=== PATIENT | male | born 1960 | race Caucasian/White ===

== ENCOUNTER 2017-02-04 07:46 | Day surgery (SDC) | payer BC ==
[~2017-02-04] VITALS: Ht 182.9 cm; Wt 121.5 kg
[2017-02-04] MEDS ORDERED: NS 1000P @30 MLS/HR (KVO) IV SCH (08:00)
[2017-02-04 08:24] VITALS: BP 148/68; PULSE 68; RESP 14; TEMP 98.8; O2SAT 95
[2017-02-04] MEDS ORDERED: FISHCAP4 PO (08:38)
[2017-02-04] MEDS ORDERED: FLUT1SPR5 EACH NARE (08:38)
[2017-02-04] MEDS ORDERED: ASPI81TA11 PO (08:38)
[2017-02-04] MEDS ORDERED: CHOL1CAP6 PO (08:38)
[2017-02-04] MEDS ORDERED: AMLO10TA2 PO (08:38)
[2017-02-04] MEDS ORDERED: RANO500 PO (08:38)
[2017-02-04] MEDS ORDERED: NITR0.4S SL (08:38)
[2017-02-04] MEDS ORDERED: LEVO150T7 PO (08:38)
[2017-02-04] MEDS ORDERED: ATOR20TA15 PO (08:38)
[2017-02-04] MEDS ORDERED: ISOS30TA3 PO (08:38)
[2017-02-04] MEDS ORDERED: PRAM0.25 PO (08:38)
[2017-02-04] MEDS ORDERED: ASPIRIN 325 MG TAB ONE (08:40)
[2017-02-04 08:46] LABS: BASOPHIL % 0.5 % (0.0-2.0); EOSINOPHIL # 0.2 TH/MM3 (0-0.4); EOSINOPHIL % 4.1 % (0.0-4.0); HEMATOCRIT 41.5 % (39.0-51.0); HEMO FLAGS DIFF FINAL; LYMPH % 42.7 % (9.0-44.0); LYMPHOCYTE # 1.9 TH/MM3 (1.0-4.8); MEAN CELL VOLUME 88.3 FL (80.0-100.0); MEAN CORPUSCULAR HEMOGLOBIN 30.3 PG (27.0-34.0); MEAN CORPUSCULAR HGB CONC 34.3 % (32.0-36.0); MONO % 8.6 % (0.0-8.0); NEUT % 44.1 % (16.0-70.0); PLATELET COUNT 292 TH/MM3 (150-450); RED CELL DISTRIBUTION WIDTH 13.2 % (11.6-17.2); WHITE BLOOD COUNT 4.5 TH/MM3 (4.0-11.0)
[2017-02-04 08:55] LABS: APTT (PATIENT) 27.6 SEC (24.3-30.1); INTERNATIONAL NORMALIZED RATIO 0.9 RATIO; PROTHROMBIN TIME - PATIENT 10.3 SEC (9.8-11.6)
[2017-02-04 09:02] LABS: BICARBONATE 26.4 MEQ/L (21.0-32.0); POTASSIUM 3.8 MEQ/L (3.5-5.1)
[2017-02-04] MEDS ORDERED: HEPARIN-NS/PF INJ 1,000 ML ONE (09:24)
[2017-02-04] MEDS ORDERED: HEPARIN SODIUM - IV 10,000 UNITS/10 ML VIAL ONE (09:24)
[2017-02-04] MEDS ORDERED: VERAPAMIL HCL 5 MG/2 ML VIAL ONE (09:24)
[2017-02-04] MEDS ORDERED: MIDAZOLAM HCL 2 MG/2 ML VIAL ONE (09:24)
[2017-02-04] MEDS ORDERED: NITROGLYCERIN INJ 5 ML ONE (09:24)
[2017-02-04] MEDS ORDERED: HEPARIN-NS/PF INJ 500 ML ONE (10:27)
--- NOTE | 2017-02-04 11:13 | CATHPROC ---
[employer] HIS Report Study Information Study Number Admission Scheduled Start Study Start [id number] Feb 04 2017 7:46AM 02/04/2017 Feb 04 2017 9:19AM Gunpowder Service Cardiac Catheterization Admit Source Facility Department Other [facility] - Senior Business Objects Developer Physician and Clinical Staff Initial MD Guardado, Yosef Orthopedics Nurse Jaswinder RN, Shar Recorder Adriana Haley,RT(R) (BS) Scrub Adenike Quinones,RT(R) Scrub Beti Mendoza,EDUCATION PROFESSIONAL TECH2 Procedures Performed Procedure Location (Site) Vessel Name Coronary Angiograms LCA Left Coronary Coronary Angiograms RCA Right Coronary L Heart Cath Wire insertion Fem Art (right) Femoral Art Wire insertion Radial (right) Radial Art. Equipment Time Cut Roll Machine Offbearer Description Size Mfg Part Number Used/Scraped TRANSDUCER, NIKKO [id number] 09:25 Babyoye * Used W/SCAR *[id number]- INTRODUCER SET, 10:29 [employer] FR 5 SC-NT-U-SST Used MICROPUNCTURE, STIFFENED *[id number] [id number] *[id number] 534-545T *[id number] 534-548T *[id number] 534-518T *[id number] 534-621T *[id number] 534-523T *[id number] 09:25 [employer]ose PACK, CCL CUSTOM * Used *[id number] 09:25 [employer] SUPPORT, ARTERIAL ADULT 98445 *[id number] Used BAND, RADIAL COMPRESSION TR [id number] 10:45 Onavo 29CM Used LARGE 29 *[id number] 09:25 Onavo WIRE, EXCHANGE 260CM 3MMJ 260CM Used *[id number] 09:25 NAMIC MANIFOLD, 4 PORT * Used *[id number] 10:29 NAMIC TUBING, HIGH PRESSURE 20" 20" Used *[id number] 09:25 NYCOMED OMNIPAQUE, 350 MG, 150ML 150ML [id number] Used [id number] 09:25 Z[employer]pi BLANKET,WARM AIR CCL * Used *[id number] 10:27 TERUMO MEDICAL SHEATH, FR5 TERUMO (10CM) FR 5 Used *[id number] SHEATH, FR6 TRANSRADIAL [id number] 09:25 TERUMO MEDICAL FR 6 Used SLENDER 10CM *[id number] Equipment Model, Serial, Lot Number and Expiration Data Description Model Number Serial Number Lot Number Expiration Date INTRODUCER SET, [id number] 01-01-2020 MICROPUNCTURE, STIFFENED History: Current Medications Medication Dosage/Unit Route Frequency Last Date/Time Taken ASA NTG Patch Statins (any) History: Allergies Allergy Reaction No Known Drug Allergies History: Risk Factors Family History of Hypertension Dyslipidemia Previous DE Previous Heart Failure Premature CAD Yes Yes No Yes No Prior Valve Prior PCI Prior PCIDate Prior CABG Surgery No Yes 06/06/2007 No Cerebrovascular Peripheral Artery Chronic Lung On Dialysis Diabetes Disease Disease Disease No No No No No History: Stress Tests Stress or Imaging Studies Performed No History: Other Current Smoker Method Quit Packs a Day Years Used Pack Years No Cigarettes 2 Years Ago 2 36 72 Labs Hgb (g/dl) Hct (%) WBC (l/cumm) Platelets (thousands) 11.60-17.00 35.00-51.00 4.00-11.00 150.00-450.00 14.2 41.5 4.5 262 Glucose (mg/dl) BUN (mg/dl) Creatinine (mg/dl) BUN:Creatinine (1:x) 74.00-106.00 7.00-18.00 0.50-1.30 10.00-20.00 99 15 1.2 12.5 Na (meq/l) K (meq/l) 136.00-145.00 3.50-5.10 140 3.8 INR (PTT:PT) 0.90-1.10 0.9 CPK-MB (ng/ML) 0.50-3.60 Not Drawn Medication Medication Total Dose (Bolus/Oral) Medication Total Dosage/Unit 1% XYLOCAINE 21 mL FENTANYL 100 mcg OXYGEN 2 l/min RADIAL COCKTAIL 1 units VERSED 1.5 mg Medications (Bolus/Oral) Medication Time Given Dosage/Unit Administered By Reason VERSED 02/04/2017 9:41:38 AM 1 mg Shar San RN 1 mg VERSED given in lab by Shar San RN in Left Antecubital via Peripheral IV. 1% XYLOCAINE 02/04/2017 9:42:34 AM 1 mL Yosef Guardado 1 mL 1% XYLOCAINE given in lab by Yosef Guardado in Right Radial via Subcutaneous. FENTANYL 02/04/2017 9:42:48 AM 50 mcg Shar San RN 50 mcg FENTANYL given in lab by Shar San RN in Left Antecubital via Peripheral IV. Ntg 200mcg Verapamil 2.5mg Heparin RADIAL COCKTAIL 02/04/2017 9:45:05 AM 1 units Yosef Guardado 2000U 1 units RADIAL COCKTAIL given in lab by Yosef Guardado in Right Radial via Radial. Reason: Ntg 200 mcg Verapamil 2.5mg Heparin 5000U. FENTANYL 02/04/2017 10:07:36 AM 50 mcg Shar San RN 50 mcg FENTANYL given in lab by Shar San RN in Left Antecubital via Peripheral IV. VERSED 02/04/2017 10:13:12 AM 0.5 mg Shar San RN 0.5 mg VERSED given in lab by Shar San RN in Left Antecubital via Peripheral IV. OXYGEN 02/04/2017 10:15:11 AM 2 l/min Shar San RN 2 l/min OXYGEN given in lab by Shar San RN via Nasal. 1% XYLOCAINE 02/04/2017 10:29:04 AM 20 mL Yosef Guardado 20 mL 1% XYLOCAINE given in lab by Yosef Guardado in Right Groin via Subcutaneous. Medication (Drip) Medication Time Given Dosage/Unit Concentration/Unit Diluent (ml) Solution IV Solutions 02/04/2017 9:20:15 AM 0 mL (IV) 500 NaCl .9 IV Solutions given in lab by Shar San RN in Left Antecubital via Peripheral IV. Pump/Drip Flow = 100 ml/hr using NaCl .9. Initial Case Assessment Cardiovascular HR Rhythm NIBP Chest Pain 57 reg 137/76 0 Edema Present Skin color Skin None Normal Warm Dry Circulatory - Right Pulses Dorsalis Pedis Femoral Radial 2 2 2 Scale (0,1,2,3,4,d) Scale (0,1,2,3,4,d) Circulatory - Lower Extremities Color Lower Right Color Lower Left Normal Normal Neurological State Oriented to time-place- Alert Moves all extremities person Respiration - General Respiration Rate SpO2 (%) (B/min) 12 97 Chronological Log Time Study Chronological Log 9:19:32 Patient arrived via Bed. 9:19:33 Patient Name, D.O.B, / Armband Verified By R.N. 9:19:34 Consent signed by the physician and the patient and verified by the Senior Business Objects Developer staff. 9:19:34 Pre-op and post- op instructions given; patient acknowledges understanding of instructions. 9:19:35 Verbal Stimulation=2 Physical Stimulation=2 Airway=2 Respiration=2 TOTAL=8. (0=absent, 1=li mited, 2=present) 9:19:39 Presedation assessment performed by Senior Business Objects Developer RN. 9:19:42 Allens test performed on the right radial and ulnar artery. 9:20:10 Patient has been NPO for More than 6Hrs. 9:20:11 Skin Breakdown none per pt 9:20:11 Patient Warmer Placed on the Table. 9:20:14 Romero Prominences Protected 9:20:14 A # 20 IV was noted in the Antecubital (left). Grade = 0 IV Solutions given in lab by Shar San RN in Left Antecubital via Peripheral IV. Pump/Drip F low = 100 ml/hr using 9:20:15 NaCl .9. 9:20:16 History and physical on the chart or being dictated. Assessment: Initial Case, HR=57 BPM, Rhythm=reg, FYYK=360/76 mmhg, Chest Pain=0, Edema=None, Co andrade=Normal, Skin = Warm, Dry Right Pulses: Rubens Ped=2, Femoral=2, Radial=2 9:20:20 Lower Right Extremities: Color=Normal Lower Left Extremities: Color=Normal Neurological: State=Alert, Ox3, HOWELL Respiration: Resp=12 B/min, SpO2=97 % Vitals capture started with the following parameters, Patient=Adult, Interval=5 min, Initial Pr vkxkgx=966 mmHg, 9:25:21 Deflation Rate=5 mmHg, Cuff placed on Left Arm 9:26:03 Reference ECG taken 9:26:36 HR=59 bpm, NYWB=698/76 mmhg, SpO2=96.0 %, Resp=19 B/min, Pain=0, Jaydon=10, Van=2 9:30:39 MD arrived. 9:30:58 Right Radial and groin prepped with 2% chlorhexidine, and with a 3 min. waiting time. 9:30:59 HR=58 bpm, LFZB=417/83 mmhg, SpO2=95.0 %, Resp=21 B/min, Pain=0, Jaydon=10, Van=2 9:36:04 HR=60 bpm, IZKJ=912/79 mmhg, SpO2=95 %, Resp=8 B/min, Pain=0, Jaydon=10, Van=2 9:37:46 Pressure channel 1 zero failed. 9:38:11 Pressure channel 1 zeroed. 9:40:59 HR=61 bpm, BMYX=213/81 mmhg, SpO2=94.0 %, Resp=12 B/min, Pain=0, Jaydon=10, Van=2 Time Out. Correct patient, correct procedure,correct physician, power injector not loaded with contrast with surgical 9:41:00 team present. Time Out Concurred by , individual staff in procedure 9:41:19 Case Start 9:41:38 1 mg VERSED given in lab by Shar San RN in Left Antecubital via Peripheral IV. 9:42:34 1 mL 1% XYLOCAINE given in lab by Yosef Guardado in Right Radial via Subcutaneous. 9:42:48 50 mcg FENTANYL given in lab by Shar San RN in Left Antecubital via Peripheral IV. 9:44:07 Access site was right Radial Artery. A SHEATH, FR6 TRANSRADIAL SLENDER 10CM FR 6 was advanced into the Radial (right) using the Perc utaneous 9:44:20 technique. 1 units RADIAL COCKTAIL given in lab by Yosef Guardado in Right Radial via Radial. Reason: N tg 200mcg Verapamil 9:45:05 2.5mg Heparin 5000U. 9:46:04 HR=62 bpm, DTPZ=412/70 mmhg, SpO2=94.0 %, Resp=12 B/min, Pain=0, Jaydon=10, Van=2 A 3DRC INFINITI CATHETER FR 5 was advanced over a wire. OMNIPAQUE, 350 MG, 150ML 150ML was used for 9:46:21 injections. Recorded Pressure: LV, HR=62, Condition=Condition 1 9:48:12 (Left Ventricle) LV 89/5/9 Recorded Pressure: LV, Ao, HR=61, Condition=Condition 1 9:48:25 (Left Ventricle) LV 81/0/6, (Aorta) Ao 80/50/61 9:49:51 Vitals capture stopped. Vitals capture started with the following parameters, Patient=Adult, Interval=5 min, Initial Pr wwauvu=779 mmHg, 9:49:52 Deflation Rate=5 mmHg, Cuff placed on Left Arm 9:50:30 HR=56 bpm, SXKT=588/55 mmhg, SpO2=90.0 %, Resp=9 B/min, Pain=0, Jaydon=10, Van=2 After removing the current catheter a JR 5.0 INFINITI CATHETER FR 5 was advanced over a WIRE, E XCHANGE 260CM 9:51:37 3MMJ 260CM. Recorded Pressure: Ao, HR=57, Condition=Condition 1 9:53:05 (Aorta) Ao 86/54/69 9:55:25 HR=56 bpm, DCEW=321/70 mmhg, Resp=9 B/min, Pain=0, Jaydon=10, Van=2 After removing the current catheter a JL 3.5 INFINITI CATHETER FR 5 was advanced over a WIRE, E XCHANGE 260CM 9:56:54 3MMJ 260CM. 10:00:04 The LCA was injected and visualized at various angles. OMNIPAQUE, 350 MG, 150ML 150ML used . 10:00:59 HR=55 bpm, YVZP=457/65 mmhg, SpO2=91.0 %, Resp=16 B/min, Pain=0, Jaydon=10, Van=2 After removing the current catheter a JR 4.0 INFINITI CATHETER FR 6 was advanced over a WIRE, E XCHANGE 260CM 10:04:38 3MMJ 260CM. 10:05:29 HR=54 bpm, HQHL=463/59 mmhg, SpO2=91.0 %, Resp=13 B/min, Pain=0, Jaydon=10, Van=2 10:07:36 50 mcg FENTANYL given in lab by Shar San RN in Left Antecubital via Peripheral IV. 10:10:28 HR=55 bpm, LPMJ=027/69 mmhg, SpO2=91 %, Resp=13 B/min, Pain=0, Jaydon=10, Van=2 10:13:12 0.5 mg VERSED given in lab by Shar San RN in Left Antecubital via Peripheral IV. After removing the current catheter a AR MOD INFINITI CATHETER FR 5 was advanced over a WIRE, E XCHANGE 260CM 10:13:17 3MMJ 260CM. 10:15:11 2 l/min OXYGEN given in lab by Shar San RN via Nasal. 10:15:29 HR=54 bpm, ZEEK=654/69 mmhg, SpO2=92.0 %, Resp=11 B/min, Pain=0, Jaydon=10, Van=2 10:20:30 HR=51 bpm, INRI=246/66 mmhg, SpO2=94.0 %, Resp=10 B/min, Pain=0, Jaydon=10, Van=2 After removing the current catheter a 3DRC INFINITI CATHETER FR 5 was advanced over a WIRE, EXC HANGE 260CM 10:21:56 3MMJ 260CM. 10:25:30 HR=52 bpm, ZOZY=284/67 mmhg, SpO2=97.0 %, Resp=13 B/min, Pain=0, Jaydon=10, Van=2 10:26:23 A WIRE, EXCHANGE 260CM 3MMJ 260CM was inserted via Radial (right). 10:26:32 Catheter was removed 10:26:34 Wire removed 10:29:04 20 mL 1% XYLOCAINE given in lab by Yosef Guardado in Right Groin via Subcutaneous. 10:30:06 Access site was Right Femoral Artery. A INTRODUCER SET, MICROPUNCTURE, STIFFENED FR 5 was advanced into the Fem Art (right) using the 10:30:17 Percutaneous technique. 10:30:31 HR=47 bpm, LIUN=576/75 mmhg, SpO2=97.0 %, Resp=17 B/min, Pain=0, Jaydon=10, Van=2 A SHEATH, FR5 TERUMO (10CM) FR 5 was exchanged in the Fem Art (right). This was necessary in or [place] to 10:30:49 accomodate a larger catheter. 10:32:52 An injection in the Fem Art (right) was made through the SHEATH, FR5 TERUMO (10CM) FR 5. A AL 1 INFINITI CATHETER FR 5 was advanced over a wire. OMNIPAQUE, 350 MG, 150ML 150ML was used for 10:33:45 injections. 10:36:09 HR=49 bpm, UFDE=371/65 mmhg, SpO2=98.0 %, Resp=12 B/min, Pain=0, Jaydon=10, Van=2 10:38:06 The RCA was injected and visualized at various angles. OMNIPAQUE, 350 MG, 150ML 150ML used . 10:40:33 HR=52 bpm, NPEZ=054/77 mmhg, SpO2=98.0 %, Resp=15 B/min, Pain=0, Jaydon=10, Van=2 10:44:21 A WIRE, EXCHANGE 260CM 3MMJ 260CM was inserted via Fem Art (right). 10:44:38 Catheter was removed 10:44:40 Wire removed 10:45:17 Activated Clotting Time Drawn Radial Compression Device Used. 9 mLs of air placed in BAND, RADIAL COMPRESSION TR LARGE 29 29C M. Affected 10:45:22 hand 98 % O2 saturation. 10:45:34 HR=54 bpm, DQXX=212/74 mmhg, SpO2=98.0 %, Resp=18 B/min, Pain=0, Jaydon=10, Van=2 10:47:59 Case End 10:48:10 No case complications noted. 10:48:11 Cine recording checked. 10:48:14 Bedside Report will be given. 10:48:16 Contrast Scanned 10:48:19 A Left Heart Cath was performed. 10:50:35 HR=51 bpm, LFBC=956/71 mmhg, SpO2=99.0 %, Resp=13 B/min, Pain=0, Jaydon=10, Van=2 10:51:11 ACT (Normal Range 90-180) = 168 10:51:41 Sheath removed; pressure applied to access site. 10:55:34 HR=53 bpm, EUIA=861/78 mmhg, SpO2=97.0 %, Resp=12 B/min, Pain=0, Jaydon=10, Van=2 11:00:35 HR=55 bpm, EIFR=069/80 mmhg, SpO2=98.0 %, Resp=20 B/min, Pain=0, Jaydon=10, Van=2 11:06:11 HR=53 bpm, KVYF=209/78 mmhg, SpO2=97.0 %, Resp=15 B/min, Pain=0, Jaydon=10, Van=2 11:08:39 Sterile dressing applied to site 11:08:41 Vitals capture stopped. 11:13:08 Patient moved to stretcher End Study - Contrast Media Used In Study Contrast Total Opened (mL) Total Used (mL) Total Wasted (mL) Omnipaque 110 110 0 End Study - Maximum Contrast Load Max Contrast Load (mL) 506.3 End Study - Radiation Exposure Fluoro Time (minutes) 22.3 End Study - Sheaths Sheaths Pulled By Sheath Hold Time (min) Adenike Quinones End Study - Patient Disposition Complications Transferred To Interventional Outcome No Senior Business Objects Developer Holding No attempt made
[2017-02-04] MEDS ORDERED: MISC INFORMATION XX ONE (11:15)
[2017-02-04] MEDS ORDERED: SODIUM CHLOR 0.9% 1000 ML INJ 1,000 ML IV SCH (12:00)
--- NOTE | 2017-02-04 20:17 | EKG ---
Date Performed: 02/04/2017 Time Performed: 08:34:42 PTAGE: 56 years EKG: Sinus rhythm . Possible inferior infarct - age undetermined Abnormal ECG NO PREVIOUS TRACING DOCTOR: Yosef Guardado Interpretating Date/Time 02/04/2017 20:15:21
--- NOTE | 2017-02-04 22:12 | MA ---
cc: YOSEF KNAPP DO DATE OF PROCEDURE February 04, 2017 PROCEDURE Left heart catheterization, coronary angiogram, moderate sedation 60 minutes PREPROCEDURE DIAGNOSIS Chest pain, coronary artery disease, unstable angina. POSTPROCEDURE DIAGNOSIS Coronary artery disease, TRIAL JUDGE of the RCA with right to right collaterals. MEDICATIONS 1. Fentanyl 100 micrograms. 2. Versed 1.5 milligrams. 3. Nitro 200 micrograms. 4. Verapamil 2.5 milligrams. 5. Heparin 5000 units. CONTRAST USED 110 cc. FLUOROSCOPY 22.3 minutes. MODERATE SEDATION 60 minutes. ESTIMATED BLOOD LOSS 10 cc. PROCEDURAL SUMMARY Yadiel Marshall is a pleasant 56-year-old male who I originally saw in the office with significant chest pain. He is on multiple antianginals and it was felt that it was reasonable to forego a stress test for cardiac catheterization. Risks, benefits and alternatives were explained to him and he consented as such. He was brought to the lab and prepped in the usual sterile fashion. Right radial artery was accessed using a modified Seldinger technique and placement of a 5/6 Lao slender sheath. This was easily aspirated and flushed. The JR-4 was advanced over a J-wire to the ascending aorta and across the aortic valve for measurement of left ventricular pressure. This was pulled back across the aortic valve showing no significant gradient of aortic stenosis. 3DRC was unable to cannulate the right coronary artery so this was exchanged out for a JR-5. This was also unable to cannulate the right coronary artery so this was exchanged out for a JL-3.5 which was used for selective angiography of the left coronary system. JL-3.5 was exchanged for a JR-4 6-Lao which was unable to cannulate the ostium and so a AR mod was attempted but unable to cannulate the ostium of the RCA. At this point the patient had significant spasm throughout his right upper extremity and it was felt that the radial approach needed to be aborted. Right femoral artery was accessed using a modified Seldinger technique and placement of a 5-Lao sheath. An AL-1 catheter was used for selective angiography of the right coronary system. AL-1 was removed over a J-wire. A radial band was placed over the arteriotomy site for hemostasis. ACT was checked and below 180, so the femoral sheath was removed and pressure was held for hemostasis. 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 FINDINGS Left main: Large vessel with adequate reflux. No significant disease. It bifurcates into an LAD and circumflex. LAD: Normal-size vessel with mild tortuosity. Mild luminal irregularities throughout but no significant disease. It gives off two small diagonal arteries with no significant disease. Circumflex: Normal vessel with tandem 30% lesions in the midportion. It gives off two obtuse marginals with the first one being large and no significant disease. The lower branch of this has diffuse 60% disease and an overall small vessel of 1.5 mm. RCA: Overall medium size vessel in the proximal portion, 100% occluded after the proximal portion. There is right to right collaterals and the distal portion of the RCA is overall a small vessel one 1 mm throughout with diffuse severe disease. IMPRESSION 1. Chest pain concerning for coronary insufficiency. 2. Coronary artery disease with overall small vessel disease of the lower branch of the first obtuse marginal as well as a TRIAL JUDGE of the RCA with right to right collateral into a small distal vessel of 1 mm with diffuse disease. RECOMMENDATIONS 1. Mr. Marshall does appear to have significant disease, specifically with a TRIAL JUDGE of the RCA. This goes along with his EKG which shows inferior infarction. 2. Because it is a TRIAL JUDGE and overall small vessel with some collaterals as well as unable to tell the takeoff from the proximal portion at the TRIAL JUDGE point I unable to intervene on this. 3. He will continue on medical management. 4. While in the holding area he was found to have a wide complex tachycardia for which he was symptomatic. This was of about 8 beats and there was a change in the R to R interval, possibly atrial fibrillation with aberrancy versus nonsustained ventricular tachycardia. Overall, his ejection fraction is normal in the office and so he will be placed on beta renee therapy and we will attempt to get a Holter monitor outpatient to determine the true etiology. If this is atrial fibrillation with aberrancy he will continue on beta renee therapy as possible to try to control this. If this is nonsustained ventricular tachycardia he does have a normal ejection fraction, we may need to have him see Dr. Mckenzie our EP hydroelectric station operator for further recommendations. 5. He will be watched postprocedure and discharge later tonight. Thank you for allowing me to see Yadiel Marshall. If there are any questions please do not hesitate to call. Yosef SKELTON/DEEPAK /7:12 PM /9:52 PM [facility]
== END 2017-02-04 18:23 | disposition home or self-care (01) ==
LOC: HDIC 07:46 → HDOC 07:46
PROVIDERS: ATTEND Nuclear Medicine Nuclear Cardiology
DX: I25.110 Atherosclerotic heart disease of native coronary artery with unstable angina pectoris (principal); I25.82 Chronic total occlusion of coronary artery; I10 Essential (primary) hypertension; E78.5 Hyperlipidemia, unspecified; E03.9 Hypothyroidism, unspecified; G25.81 Restless legs syndrome; G47.30 Sleep apnea, unspecified; Z95.5 Presence of coronary angioplasty implant and graft; Z79.82 Long term (current) use of aspirin; Z79.899 Other long term (current) drug therapy
CPT/HCPCS: 80048; 85002; 85025; 85610; 85730; 93005; 93458; C1769; C1893; J1644; J2250; J3010; 93454